=== PATIENT | male | born 1965 | race Caucasian/White ===

== ENCOUNTER 2023-02-01 11:30 | Emergency (ER) | payer BC, SELFPAY ==
[2023-02-01 11:38] VITALS: BP 137/87; PULSE 57; RESP 18; TEMP 35.8; O2SAT 96; BMI 39.7
--- NOTE | 2023-02-01 12:09 | CRLHL7_ITS ---
For Patients: As a result of the 21st Century Cures Act, medical imaging exams and procedure reports are released immediately into your electronic medical record. You may view this report before your referring provider. If you have questions, please contact your health care provider. INDICATION: Right flank pain. History of stones. COMPARISON: November 20, 2014 TECHNIQUE: CT examination of the abdomen and pelvis was performed without intravenous contrast. Thin section axial images were obtained from the lung bases through the pubic symphysis. Oral contrast was not administered. Please note that all CT scans at this facility use dose modulation, iterative reconstruction, and/or weight-based dosing when appropriate to reduce radiation dose to as low as reasonably achievable. FINDINGS: LUNG BASES: The lung bases as visualized appear normal.The heart size is normal at the lung bases. LIVER/BILIARY SYSTEM:The liver is normal in size and configuration given the lack of intravenous contrast. There is no visible focal mass and there is no intra- or extra hepatic biliary ductal dilatation.The gall bladder appears normal. Hepatic steatosis ADRENALS: Normal non-contrast appearance KIDNEYS, URETERS and BLADDER:No intrarenal calculi on the right. There is a 2.5 millimeter left lower pole renal calculus. No evidence of obstructive uropathy on either side. Multiple pelvic calcifications are noted however they are all unchanged consistent with phleboliths and other vascular calcifications. No calcifications within the bladder. There is a 2.1 centimeter left anterior mid pole renal lesion which was not present previously and measures 32 Hounsfield units. This could represent a hyperdense cyst or other lesion. Follow-up evaluation is recommended. This might be amenable by evaluation by sonography. SPLEEN:Normal non-contrast appearance. PANCREAS: Normal non-contrast appearance. RETROPERITONEUM and MESENTERY: There is no mass, adenopathy or aortic aneurysm. Atherosclerotic vascular calcifications GASTROINTESTINAL SYSTEM: There is no evidence of diverticulitis, colitis, mechanical obstruction, or appendicitis. The small bowel as visualized appears normal.Diverticulosis, especially sigmoid. PELVIS: No mass, adenopathy or free fluid. OSSEOUS STRUCTURES and ABDOMINAL WALL: There is an age-appropriate appearance of the osseous structures.No significant abdominal wall defect. OTHER: No free fluid or free air. IMPRESSION: 1. There is no specific visible cause for right flank pain. No intrarenal calculi on the right. Intrarenal calculus on the left. No evidence of current or recent obstructive uropathy on either side. 2. Indeterminate left renal lesion measuring 2.1 centimeters new since 2015. Follow-up evaluation recommended in the nonacute care setting. 3. Other incidental nonacute appearing findings as discussed above Please note that all CT scans at this facility use dose modulation, iterative reconstruction, and/or weight-based dosing when appropriate to reduce radiation dose to as low as reasonably achievable. Dictated by Robert Madrigal MD @ 02/01/2023 1:39:44 PM (Electronically Signed)
[2023-02-01 12:18] LABS: Appearance Urine Clear (Clear); Bilirubin Urine Negative (Negative); Blood Urine 2+ (Negative); Color Urine Yellow (Yellow); Glucose Urine Negative (Negative); Ketones Urine Negative (Negative); Leukocyte Esterase Urine Negative (Negative); Nitrite Urine Negative (Negative); Protein Urine Negative (Negative); Specific Gravity Urine 1.015 (1.000-1.030); Urobilinogen Urine 0.2 (0.2-1.0); pH Urine 5.5 (5.0-8.5)
[2023-02-01 12:26] LABS: Squamous Epithelial Cell Urine Few (None-Few); WBC Urine 0-2 (0-5)
[2023-02-01 12:43] LABS: Basophils Absolute Auto 0.05 K/uL (0.00-0.30); Basophils Percent Auto 0.8 % (0.0-3.0); Eosinophils Absolute Auto 0.27 K/uL (0.00-0.50); Eosinophils Percent Auto 4.5 % (0.0-7.0); Hematocrit 46.6 % (37.0-53.0); Hemoglobin* 16.1 gm/dL (13.5-17.5); Immature Granulocytes Abs Auto 0.02 K/uL (0.00-0.30); Immature Granulocytes Pct Auto 0.3 %; Lymphocytes Absolute Auto 2.19 K/uL (0.90-2.90); Lymphocytes Percent Auto 36.2 % (20-44); Mean Corpuscular HGB Conc 35 gm/dL (32-36); Mean Corpuscular Hemoglobin 31 pg (26-34); Mean Corpuscular Volume 89 fL (80-100); Monocytes Percent Auto 11.1 % (0.0-11.0); Neutrophils Absolute Auto 2.85 K/uL (1.7-7.0); Neutrophils Percent Auto 47.1 % (42.0-72.0); Platelet Count* 217 K/uL (140-440); RDW Coefficient of Variation % 12.8 % (11.5-15.5); Red Blood Count 5.24 m/uL (4.30-5.90); White Blood Count* 6.05 K/uL (4.50-11.00)
[2023-02-01 12:45] LABS: Slide Review Reflex No
--- NOTE | 2023-02-01 12:45 | ED_ITS ---
HPI - General Adult General Date Seen: 02/01/23 Chief complaint: Flank Pain Stated complaint: Possible kidney stone--back pain Time Seen by Provider: 02/01/23 12:01 Source: patient Mode of arrival: ambulatory Limitations: no limitations History of Present Illness HPI narrative: Patient is a 57-year-old male with right low back pain. He has a history of kidney stones and states this feels like his previous kidney stones but milder. States symptoms ongoing for 5 days. Says the pain feels like it is deeper he has not think it is a muscle strain. Does admit to doing regular heavy lifting. Does state some movements make the pain worse. Has not had any issues with urination. Denies dysuria. Pain has not moved at all. To the histological oblique a little opaque over his the conclusion is, lightheadedness, dizziness. No other concerns at this time Related Data Previous Rx's Medication Instructions Recorded atenolol 50 mg tablet 50 mg PO DAILY #90 tabs 05/05/22 doxycycline hyclate 100 mg capsule 100 mg PO BID #20 caps 05/05/22 prednisone 20 mg tablet 20 mg PO BID #14 tabs 05/05/22 sildenafil 100 mg tablet 25 - 100 mg (0.25 - 1 x 100 mg) PO 05/05/22 QDAY PRN sexual activity #30 tabs trazodone 50 mg tablet 25 - 50 mg (0.5 - 1 x 50 mg) PO 05/05/22 QHS #90 tabs Allergies Allergy/AdvReac Type Severity Reaction Status Date / Time Fish Containing Products Allergy Severe Anaphylaxis Verified 02/01/23 11:38 lisinopril Allergy Severe Rash Verified 02/01/23 11:37 Sulfa (Sulfonamide Allergy Severe Anaphylaxis Verified 02/01/23 11:38 Antibiotics) penicillin V Allergy Mild Rash Verified 02/01/23 11:37 levofloxacin Allergy Unknown Rash Verified 02/01/23 11:37 Review of Systems Status of ROS: Reports: 10 or more systems reviewed and unremarkable except as noted in History and below [facility] Medical History (Updated 02/01/23 @ 13:47 by Robinson Sultana DO) Insomnia ?G47.00 - Insomnia, unspecified (ICD-10) Erectile dysfunction ?N52.9 - Male erectile dysfunction, unspecified (ICD-10) Encounter for screening for COVID-19 ?Z11.52 - Encounter for screening for COVID-19 (ICD-10) Encounter for pre-operative examination ?Z01.818 - Encounter for other preprocedural examination (ICD-10) Encounter for annual physical exam ?Z00.00 - Encounter for general adult medical examination without abnormal findings (ICD-10) Surgical History (Updated 05/04/22 @ 13:45 by Isidra Mackey ~ PSR) History of shoulder surgery ?Z98.890 - Other specified postprocedural states (ICD-10) History of colonoscopy ?Z98.890 - Other specified postprocedural states (ICD-10) History of appendectomy ?Z90.49 - Acquired absence of other specified parts of digestive tract (ICD- 10) Social History Smoking Status: Never smoker Non-prescribed substance use: denies use Exam Narrative: Exam Narrative: Const: Well-nourished, Well-developed, in mild distress Eyes: PERRL, no conjunctival injection, and symmetrical lids HENT: Atraumatic external nose and ears. Moist mucous membranes. Neck: Symmetric, trachea midline, No thyromegaly. CVS: RRR, No murmurs or gallops. Peripheral pulses 2+ and equal in all extremities RESP: Unlabored respiratory effort. Clear to auscultation bilaterally. GI: Nontender/Nondistended, No rebound or guarding. MSK:Extremities w/o deformity, Normal Active ROM. Mild tenderness to right low back paraspinal region Skin: Warm, Dry. No rashes or lesions. Neuro: Normal Muscle tone, No focal neurological deficits. Psych: Awake, Alert, & Oriented x3. Appropriate mood and affect. Const: Vital Signs, click to edit/add: Vital Signs - 24 hr 02/01/23 11:38 02/01/23 12:53 Temperature 96.4 F L Pulse Rate [Pulse Oximeter] 57 L 53 L Respiratory Rate 18 16 Blood Pressure [Ri ght Upper Arm] 137/87 148/97 H Pulse Oximetry 96 96 Oxygen Delivery Me thod Room Air Room Air Course Vital Signs Vital signs: Initial Vital Signs Temperature 96.4 F L 02/01/23 11:38 Temperature Source Temporal Artery Scan 02/01/23 11:38 Pulse Rate 57 L 02/01/23 11:38 Respiratory Rate 18 02/01/23 11:38 Blood Pressure 137/87 02/01/23 11:38 Blood Pressure Mean 103 02/01/23 11:38 Blood Pressure Position Sitting 02/01/23 11:38 Pulse Oximetry 96 02/01/23 11:38 Oxygen Delivery Method Room Air 02/01/23 11:38 Vital Signs Temperature 96.4 F L 02/01/23 11:38 Pulse Rate 57 L 02/01/23 11:38 Respiratory Rate 18 02/01/23 11:38 Blood Pressure 137/87 02/01/23 11:38 Pulse Oximetry 96 02/01/23 11:38 Oxygen Delivery Method Room Air 02/01/23 11:38 Temperature 96.4 F L 02/01/23 11:38 Pulse Rate 53 L 02/01/23 12:53 Respiratory Rate 16 02/01/23 12:53 Blood Pressure 148/97 H 02/01/23 12:53 Pulse Oximetry 96 02/01/23 12:53 Oxygen Delivery Method Room Air 02/01/23 12:53 Medical Decision Making MDM Narrative Medical decision making narrative: Patient is a 57-year-old male presents emergency department for right flank pain. Denies right lower flank. He is concerned could be a kidney stone as he has had several kidney stones in the past. States the pain here is not as severe though. Does admit to doing lots of heavy lifting and when I talked involve being possibly a muscle strain he states this feels deeper than that. Since there is concern for kidney stone would check a urinalysis, CBC, BMP, CT scan with out contrast. He has not required any pain medication right now and is not needing any nausea medicine. Cbc and BMP showed no concerning abnormalities. Creatinine and appears to be at baseline. Urinalysis does show blood in his urine and he states he always has blood in his urine. CT scan returned showing no acute abnormalities. There is a new incidental kidney lesions seen which may follow up outpatient. But no kidney stones seen right now concern as blood in his u rine he could have recently passed a kidney stone. Likely those could also just be a muscle strain from his heavy lifting. He can be discharged home he agrees with this plan. Lab Data Labs: Lab Results 02/01/23 02/01/23 Range/Units 12:05 12:35 WBC 6.05 (4.50-11.00) K/uL RBC 5.24 (4.30-5.90) m/uL Hgb 16.1 (13.5-17.5) gm/dL Hct 46.6 (37.0-53.0) % MCV 89 (80-100) fL MCH 31 (26-34) pg MCHC 35 (32-36) gm/dL RDW Coeff of Soha 12.8 (11.5-15.5) % Plt Count 217 (140-440) K/uL Neut % (Auto) 47.1 (42.0-72.0) % Lymph % (Auto) 36.2 (20-44) % Moore % (Auto) 11.1 H (0.0-11.0) % Eos % (Auto) 4.5 (0.0-7.0) % Baso % (Auto) 0.8 (0.0-3.0) % Neut # (Auto) 2.85 (1.7-7.0) K/uL Lymph # (Auto) 2.19 (0.90-2.90) K/uL Moore # (Auto) 0.70 (0.00-0.90) K/UL Eos # (Auto) 0.27 (0.00-0.50) K/uL Baso # (Auto) 0.05 (0.00-0.30) K/uL Abs Immat Gran (auto) 0.02 (0.00-0.30) K/uL Imm/Tot Granulo (auto) 0.3 % Sodium 138 (135-149) mmol/L Potassium 4.4 (3.6-5.1) mmol/L Chloride 107 (96-114) mmol/L Carbon Dioxide 23 (20-32) mmol/L Anion Gap 8 (7-15) mEq/L BUN 17 (7-30) mg/dL Creatinine 1.3 (0.5-1.5) mg/dL Estimated Creat Clear 65.16 Estimated GFR 63 ml/min Glucose 86 (60-115) mg/dL Calcium 9.6 (8.4-10.6) mg/dL Urine Color Yellow (Yellow) Urine Appearance Clear (Clear) Urine pH 5.5 (5.0-8.5) Ur Specific [place] 1.015 (1.000-1.030) Urine Protein Negative (Negative) Urine Glucose (UA) Negative (Negative) Urine Ketones Negative (Negative) Urine Blood 2+ A (Negative) Urine Nitrite Negative (Negative) Urine Bilirubin Negative (Negative) Urine Urobilinogen 0.2 (0.2-1.0) Ur Leukocyte Esterase Negative (Negative) Urine RBC 5-10 A (0-2) Urine WBC 0-2 (0-5) Ur Squamous Epith Cells Few (None-Few) Urine Bacteria None (None) Imaging Data Abdominal and pelvis CT: Radiologist's impression: INDICATION: Right flank pain. History of stones. COMPARISON: November 20, 2014 TECHNIQUE: CT examination of the abdomen and pelvis was performed without intravenous contrast. Thin section axial images were obtained from the lung bases through the pubic symphysis. Oral contrast was not administered. Please note that all CT scans at this facility use dose modulation, iterative reconstruction, and/or weight-based dosing when appropriate to reduce radiation dose to as low as reasonably achievable. FINDINGS: LUNG BASES: The lung bases as visualized appear normal.The heart size is normal at the lung bases. LIVER/BILIARY SYSTEM:The liver is normal in size and configuration given the lack of intravenous contrast. There is no visible focal mass and there is no intra- or extra hepatic biliary ductal dilatation.The gall bladder appears normal. Hepatic steatosis ADRENALS: Normal non-contrast appearance KIDNEYS, URETERS and BLADDER:No intrarenal calculi on the right. There is a 2.5 millimeter left lower pole renal calculus. No evidence of obstructive uropathy on either side. Multiple pelvic calcifications are noted however they are all unchanged consistent with phleboliths and other vascular calcifications. No calcifications within the bladder. There is a 2.1 centimeter left anterior mid pole renal lesion which was not present previously and measures 32 Hounsfield units. This could represent a hyperdense cyst or other lesion. Follow-up evaluation is recommended. This might be amenable by evaluation by sonography. SPLEEN:Normal non-contrast appearance. PANCREAS: Normal non-contrast appearance. RETROPERITONEUM and MESENTERY: There is no mass, adenopathy or aortic aneurysm. Atherosclerotic vascular calcifications GASTROINTESTINAL SYSTEM: There is no evidence of diverticulitis, colitis, mechanical obstruction, or appendicitis. The small bowel as visualized appears normal.Diverticulosis, especially sigmoid. PELVIS: No mass, adenopathy or free fluid. OSSEOUS STRUCTURES and ABDOMINAL WALL: There is an age-appropriate appearance of the osseous structures.No significant abdominal wall defect. OTHER: No free fluid or free air. IMPRESSION: 1. There is no specific visible cause for right flank pain. No intrarenal calculi on the right. Intrarenal calculus on the left. No evidence of current or recent obstructive uropathy on either side. 2. Indeterminate left renal lesion measuring 2.1 centimeters new since 2014. Follow-up evaluation recommended in the nonacute care setting. 3. Other incidental nonacute appearing findings as discussed above Please note that all CT scans at this facility use dose modulation, iterative reconstruction, and/or weight-based dosing when appropriate to reduce radiation dose to as low as reasonably achievable. Dictated by Robert Madrigal MD @ 02/01/2023 1:39:44 PM Discharge Plan Discharge Clinical Impression: Flank pain Patient Disposition: Home, Self-Care Condition: Stable Instructions: Flank Pain (ED) Additional Instructions: Follow-up with the primary care provider. Return for new or worsened symptoms. Take Tylenol and ibuprofen for pain. She possibly could have had a kidney stone that has passed but does not appear to be in a kidney stone at this current moment. A could also be musculoskeletal in nature but we cannot definitively say at this time. Does not appear to be any other intra-abdominal issues. Kidney function is within normal limits. An incidental lesion was seen in your left kidney. Follow-up with your primary care provider about this when you are able to Prescriptions: No Action sildenafil 100 mg tablet 25 - 100 mg PO QDAY PRN (Reason: sexual activity) Qty: 30 12RF Rx Instructions: administer 30 minutes to 4 hours before activity prednisone 20 mg tablet 20 mg PO BID Qty: 14 1RF Rx Instructions: Gout. atenolol 50 mg tablet 50 mg PO DAILY Qty: 90 3RF doxycycline hyclate 100 mg capsule 100 mg PO BID Qty: 20 1RF trazodone 50 mg tablet 25 - 50 mg PO QHS Qty: 90 1RF Follow Up/Referrals: Lai Mathis MD [Primary Care Provider] - Stand Alone Forms: [employer] Info Instructions
[2023-02-01 12:53] VITALS: BP 148/97; PULSE 53; RESP 16; O2SAT 96
[2023-02-01 12:56] LABS: Chloride* 107 mmol/L (96-114)
[2023-02-01 12:57] LABS: Potassium* 4.4 mmol/L (3.6-5.1); Sodium* 138 mmol/L (135-149)
[2023-02-01 12:59] LABS: Creatinine* 1.3 mg/dL (0.5-1.5); Est. Creatinine Clearance* 65.16; Estimated Glomerular Filt Rate 63 ml/min
[2023-02-01 13:00] LABS: Anion Gap 8 mEq/L (7-15); Blood Urea Nitrogen* 17 mg/dL (7-30); Calcium* 9.6 mg/dL (8.4-10.6); Carbon Dioxide* 23 mmol/L (20-32); Glucose* 86 mg/dL (60-115)
[2023-02-01 13:59] VITALS: BP 149/99; PULSE 57
== END 2023-02-01 14:00 | disposition home or self-care (01) ==
PROVIDERS: Emergency Provider Student in an Organized Health Care Education/Training Program; PCP Family Medicine
DX: R10.31 Right lower quadrant pain (principal)
CPT/HCPCS: 36415; 74176; 80048; 81001; 85025; 99283; 99284

== ENCOUNTER 2023-04-13 11:24 | Outpatient (CLI) | payer BC, SELFPAY ==
--- NOTE | 2023-04-13 17:00 | CRLHL7_ITS ---
For Patients: As a result of the Century Cures Act, medical imaging exams and procedure reports are released immediately into your electronic medical record. You may view this report before your referring provider. If you have questions, please contact your health care provider. CLINICAL HISTORY: new left renal lesion seen on CT COMPARISON: CT 02/01/2023 TECHNIQUE: Jackson scale and color Doppler images were acquired of the kidneys. FINDINGS: Exophytic simple cyst arises from the left kidney inferior pole corresponding to the CT measuring 1.9 x 1.9 x 1.8 cm. There is no evidence of hydronephrosis, solid mass or calculus. The right kidney measures 12.4cm in length and the left kidney measures 11.3cm in length. The renal cortex appears of normal thickness. Normal color Doppler images of both kidneys. IMPRESSION: Simple exophytic anechoic cyst lower pole left kidney. Dictated by Rajinder Cassidy MD @ 04/13/2023 12:38:27 PM (Electronically Signed)
== END 2023-04-13 11:25 | disposition home or self-care (01) ==
LOC: US 11:24
PROVIDERS: PCP Family Medicine; Visit Provider Family Medicine
DX: N28.89 Other specified disorders of kidney and ureter (principal); N28.1 Cyst of kidney, acquired
CPT/HCPCS: 76775

== ENCOUNTER 2023-05-25 10:57 | Outpatient (CLI) | payer BC, SELFPAY | END 2023-05-25 10:58 | disposition home or self-care (01) | LOC: LKVREF 11:07 | PROVIDERS: PCP Family Medicine; Visit Provider Family Medicine | DX: I10 Essential (primary) hypertension (principal); N28.89 Other specified disorders of kidney and ureter; R31.9 Hematuria, unspecified | CPT/HCPCS: 87086; G0103 ==

== ENCOUNTER 2023-07-06 07:45 | Outpatient (CLI) | payer BC, SELFPAY ==
--- NOTE | 2023-07-06 08:00 | CT_ITS ---
Patient: ROBERT FERRARI Facility:?[facility] Patient ID:?[id number] Site Patient ID:?[id number]. Site :?[id number] Study:?CT-Abdomen/Pelvis 120CC ISOVUE 370-07/06/2023 9:49:18 AM Ordering Physician:?DR. BONILLA Final Report: INDICATION: MICROSCOPIC HEMATURIA. RT FLANK PAIN TECHNIQUE: CT abdomen and pelvis urogram without and with 120CC ISOVUE 370 contrast. Contrast images were obtained in the nephrographic and delayed phases. COMPARISON: 02.01.23 CT, 04/13/2023 ultrasound FINDINGS: KIDNEYS: The unenhanced images demonstrate no kidney or ureteral stones. The kidneys are normal in caliber and demonstrate normal uptake and excretion of IV contrast. Stable nonenhancing exophytic cyst arising from the lateral aspect of the left kidney measuring 2.0 cm. The renal collecting systems and ureters are symmetrical, normal in caliber, and without evidence of mass or filling defect. URINARY BLADDER: The urinary bladder is normal in caliber and without evidence of mass, wall thickening, or inflammation. OTHER: Mild dependent areas of atelectasis. No pleural effusion. Fatty infiltration of the liver. Normal adrenal glands. Spleen is not enlarged. There is no hiatal hernia. Pancreas is normal. Mild atherosclerotic changes. Incidental retroaortic course of the left renal vein. Colonic diverticulosis. No diverticulitis. No bowel obstruction. No free air or free fluid. No abscess. Degenerative changes. No vertebral body compression fracture. IMPRESSION: 1. Stable benign exophytic cyst arising from the left kidney. 2. No renal or ureteral stones. Please note that all CT scans at this facility use dose modulation, iterative reconstruction, and/or weight-based dosing when appropriate to reduce radiation dose to as low as reasonably achievable. Dictated by Rajinder Cassidy MD @ 07/06/2023 11:13:42 AM Signed by:?Rajinder Cassidy MD @07/06/2023 11:13:42 AM (Electronic Signature)
[2023-07-06 08:21] LABS: Creatinine* 1.2 mg/dL (0.5-1.5); Estimated Glomerular Filt Rate 69 ml/min
== END 2023-07-06 07:46 | disposition home or self-care (01) ==
PROVIDERS: PCP Family Medicine; Visit Provider Physician Assistant
DX: R31.29 Other microscopic hematuria (principal); N28.1 Cyst of kidney, acquired; R10.9 Unspecified abdominal pain
CPT/HCPCS: 36415; 74178; 82565; Q9967

== ENCOUNTER 2023-08-04 08:30 | Outpatient (CLI) | payer BC, SELFPAY ==
--- OUTSIDE RECORDS SUMMARY | 2023-08-11 12:07 | XMS_ITS | Continuity of Care Document ---
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 [facility], [address] [place] [address], [id number] , [place]. tel:[phone] Referring Provider: Patel Burrell, [address], [address] . tel:[phone] Family History Family Member Type Diagnosis Age At Onset Problem (finding) Problem (finding) Payers Payer name Insurance type Covered republican ID [place] [id number] Out Of [place] [id number] Social History Type Description Quantity Date Captured Comments Alcohol Use Details Caffeine Use Details Tobacco Use Status Smoking Status No Information Non-Smoking Tobacco Use Details : No Details Available : No Details Available Sex Male Vital Signs Date / Time: Height Weight BMI Pulse Rate Blood Pressure Temperature Respiratory Rate Body Surface Area Head Circumference Head Circ. Percentile Wt./Rafael. Percentile BMI percentile Pulse Ox Inhaled Ox 10:20 AM 70.00 in 117.934 kg (260.00 lbs) 37.3 1 kg/m eter (2) 69 /min 119/74 mm[Hg] Chief Complaint And Reason For Visit No Information Reason For Referral Reason For Referral No Information History Of Present Illness Encounter Date Complaint History Of Prese nt Illness No Information Functional Status Date Functional Assessmen t No Information Instructions Date Instruction Additional Infor jose Weight Management Education Rela elmo to Overweight Weight management: I nstructed to return to General Practitioner timeframe: 1 Month. Related to Overweight Assessments Type Assessment Date assessment Overweight Patient Care Teams Name Effective Dates (start - stop) Status Members No Information
== END 2023-08-04 08:31 | disposition home or self-care (01) ==
LOC: LKVREF 08:31
PROVIDERS: PCP Family Medicine; Visit Provider Family Medicine
DX: I10 Essential (primary) hypertension (principal); E29.1 Testicular hypofunction; N18.9 Chronic kidney disease, unspecified; E55.9 Vitamin D deficiency, unspecified
CPT/HCPCS: 84270; 84402; 84403

== ENCOUNTER 2024-01-30 08:13 | Outpatient (CLI) | payer BC, SELFPAY ==
--- OUTSIDE RECORDS SUMMARY | 2024-02-03 06:44 | XMS_ITS | Clinical Summary ---
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 0 07/25/2013 Active HYDROcodone-acetamino phen, 5-325 mg, (NORCO) per tabletIndications:Low back pain Take 1 tablet by mouth every 6 hours if needed for Pain. Use least amount possible. Max acetaminophen: 4000mg/24 hrs. 45 tablet 0 07/25/2013 Active cyclobenzaprine (FLEXERIL) 10 mg tabletIndications:Low back pain Use up to three times daily for muscle spasm/back pain. Use mostly at night only, may make you drowsy. 45 tablet 0 05/12/2014 Active atenolol (TENORMIN) 25 mg tablet Take 25 mg by mouth once daily. Active Active Problems Problem Noted Date Diagnosed Date Hypertension Overview (07/25/2013): lisinopril since 2010 Social History Tobacco Use Types Packs/Day Years Used Date Smoking Tobacco: Former Smokeless Tobacco: Never Alcohol Use Standard Drinks/Week Comments Not Asked 0 (1 standard drink = 0.6 oz pur e alcohol) Sex and Gender Information Value Date Recorded Sex Assigned at Not on file Gender Identity Not on file Sexual Orientation Not on file Obstetrics History Last Filed Vital Signs Vital Sign Reading Time Taken Comments Blood Pressure 103/64 02/20/2015 2:23 PM CDT Pulse 64 02/20/2015 2:23 PM CDT Temperature - - Respiratory Rate - - Oxygen Saturation - - Inhaled Oxygen Concentration - - Weight 123.4 kg (272 lb) 02/20/2015 2:23 PM CDT Height 180.3 cm (5' 11) 02/20/2015 2:23 PM CDT Body Mass Index 37.94 02/20/2015 2:23 PM CDT Plan of Treatment Health Maintenance Due Date Last Done Comments Tdap 1974 Depression screening for age 12+ 1975 HIV for age 15-65 1978 BMI (ht and wt on same day) for age 18+ 1981 Hepatitis C screening for ag e 18-79 1981 Tetanus booster 1983 Colonoscopy through age 75 2008 Lipids for age 45-75 2008 Zoster (shingles) series for age 50+ (1 of 2) 2013 COVID-19 vaccine series (2023- season) 2024 Influenza for age 50-64 01/07/2024 Pneumococcal series for age 6-64 Aged Out No longer eligible based on patient's age to complete this topic Care Teams Railroad Car Cleaner Relationship Specialty Start Date End Date Patel Diaz MD PCP - General Family Practice 02/17/15
--- OUTSIDE RECORDS SUMMARY | 2024-02-03 06:44 | XMS_ITS | Continuity of Care Document ---
Author Organization [facility] Address [address] [place] [address] Phone Care Team Providers Care Healthcare Project Manager Name Role Phone Veronica PAZ, Keenan Unavailable Unavailable Procedures Procedure Date Office/Outpatient Visit,[facility] 2015 Advance Directives Directive Yes / No Effective Date File Name No Information Encounters Encounter Description Practice Location Reason(s) For Visit Diagnoses Date Provider Providers Copied on Encounter Office/Outpat ient Visit,[facility], [facility], [address], [place], [place], [id number], [place] tel:[phone] [facility] OverweightOther spondylosis, lumbar region 6 Veronica Hussein. [facility], [address] , [place], [address], [place]. tel:[phone] Referring Provider: Patel Burrell, [place] [address] [place] [address], [address] . tel:[phone] Family History Family Member Type Diagnosis Age At Onset Problem (finding) Problem (finding) Payers Payer name Insurance type Covered libertarian ID Saydaa aleyda(s) BCBS [id number] Out Of [place] [id number] Social History Type Description Quantity Date Captured [...] No Information Instructions Date Instruction Additional Infor mation Weight Management Education Rela elmo to Overweight Weight management: I nstructed to return to General Practitioner timeframe: 1 Month. Related to Overweight Assessments Type Assessment Date assessment Overweight Patient Care Teams Name Effective Dates (start - stop) Status Members No Information
--- OUTSIDE RECORDS SUMMARY | 2024-02-03 06:44 | XMS_ITS | Data Portability ---
Author Organization [facility] Address [address] [place] [address] Care Team Providers Care Consulting Software Engineer Name Role Phone ALAN MATHIS Primary Care Provider [phone] Assessment No assessment recorded. Plan of Treatment Reminders Order Date Submit Date Provider Last Modified By Organization Details Last Modified Time Details Appointments None recorded. Lab urinalysis, dipstick 2023 024 [facility], [address], [address], [place], [address], 4 12:36:26 urinalysis, microscopic 2023 024 [facility], [address], [address], [place], [address], 4 05:01:35 Referral None recorded. Procedures None recorded. Surgeries None recorded. Imaging None recorded. Medication Orders None recorded. Patient TargetsNo targets recorded. Patient Instructions Encounter Date Encounter Id Patient Instructions Last Modified By Organization Details Last Modified Time 06/22/2023 [id number] 57 year old male referred by Dr. Alan Mathis at [facility]. 1. Right back pain over superior aspect of hip: Pt reports 4 month history of right lower back pain. Stable, 2/10 severity that only occurs in the morning after he wakes up. This improves with movement. Denies voiding concerns. Pt was given exercises and stretches for this pain but has not yet tried them. Had CT scan on 02/01/23 showing no kidney stones on the right. Small 2.5 mm left renal stone as well as a small renal lesion and MARYURI was recommended. MARYURI completed 04/13/23 and showed left renal lesion was a simple cyst. Plan to follow small stone expectantly. Discussed his pain. I do not believe his right sided back pain stems from a urologic source given character and location. Continue to work with PCP to pursue other etiologies. 2. Reported history of microscopic hematuria: Recent UA with RBC 2-5 Pt reports history of microscopic hematuria with a negative workup including cyst[place] [address] Griffin in [place], [place]. Denies gross hematuria. Will obatin these records for review. UA pending today. 3. Prostate cancer screening: Reports prostate cancer screening with PSA was recently done with PCP and normal. Continue routine prostate cancer screening with PCP. He is advised to call with worsening voiding symptoms. His questions were answered and he wished to proceed. [email or web address] Not available 06/22/2023 13:28:47 Reason for Referral None Reported. Results Created Date Observation Date Name Description Value Unit Range Abnormal Flag Note LastModifiedBy Organization Detail LastModifiedTime 06/22/19 24 06/22/2023 UA WITHO UT MICRO - CS URISC AN blood - uriscan NEGATI VE negati ve Not Available [facility] [address], [place], [address], 06/22/2023 12:36:26 06/22/19 24 06/22/2023 UA WITHO UT MICRO - CS URISC AN bilirubin - uriscan NEGATI VE mg/dL negati ve Not Available [facility] [address], [place], [address], 06/22/2023 12:36:26 06/22/19 24 06/22/2023 UA WITHO UT MICRO - CS URISC AN urobilinogen - uriscan NORMAL mg/dL normal Not Available [facility] [address] [facility] [address] [address], [place], [address], 06/22/2023 12:36:26 06/22/19 24 06/22/2023 UA WITHO UT MICRO - CS URISC AN ketones - uriscan NEGATI VE mg/dL negati ve Not Available [facility] [address], [place], [address], 06/22/2023 12:36:26 06/22/19 24 06/22/2023 UA WITHO UT MICRO - CS URISC AN protein - uriscan NEGATI VE mg/dL negati ve Not Available [facility] [address] [place] [address] [address], [place], [address], 06/22/2023 12:36:26 06/22/19 24 06/22/2023 UA WITHO UT MICRO - CS URISC AN nitrites - uriscan NEGATI VE negati ve Not Available [facility] [address], [place], [address], 06/22/2023 12:36:26 06/22/19 24 06/22/2023 UA WITHO UT MICRO - CS URISC AN glucose - uriscan NEGATI VE mg/dL negati ve Not Available [facility] [address] [place] [address] [address], [place], [address], 06/22/2023 12:36:26 06/22/19 24 06/22/2023 UA WITHO UT MICRO - CS URISC AN pH - uriscan 7.00 5.00-9 .00 Not Available [facility] [address] [place] [address] [address], [place], [address], 06/22/2023 12:36:26 06/22/19 24 06/22/2023 UA WITHO UT MICRO - CS URISC AN sp. gravity - uriscan 1.02 1.01-1 .03 Not Available [facility] [address] [place] [address] [address], [place], [address], 06/22/2023 12:36:26 06/22/19 24 06/22/2023 UA WITHO UT MICRO - CS URISC AN leukocytes - uriscan NEGATI VE negati ve Not Available [facility] [address] [place] [address] [address], [place], [address], 06/22/2023 12:36:26 06/22/19 24 06/22/2023 UA WITHO UT MICRO - CS URISC AN color - uriscan YELLOW lt. yellow ;yello w Not Available [facility] [address] [facility] [address], [place], [address], 06/22/2023 12:36:26 06/22/19 24 06/22/2023 UA WITHO UT MICRO - CS URISC AN clarity - uriscan CLEAR clear Not Available [facility] [address] [facility] [address], [place], [address], 06/22/2023 12:36:26 06/22/19 24 06/22/2023 UA WITHO UT MICRO - CS URISC AN total urine volume (mL) 50CC /mL ----- ----- ----- ----- ----- ----- ----- ----- ----- ----- ----- ----- ----- ----- ---- *Jen cochran note the follo wing minim um quant ities for addit ional urine testi ng: - Atypi cals: 3 mL - Cytol ogy: 20 mL - GC/CH : 2 mL - FISH: 30 mL - Atypi cals w/ GC/CH : 5 mL - Cytol ogy PLUS FISH: 50 mL - Urine Cultu re: 3 mL ----- ----- ----- ----- ----- ----- ----- ----- ----- ----- ----- ----- ----- ----- ---- This lab resul t is being provi ded to you and your provi vikash at the same time in compl iance with the 21st Centu ry Cures Act. Your provi vikash may not have had time to revie w and make recom menda tions based on the resul t. Pleas e allow up to one week for provi vikash revie w. Not Available [facility] [address], [place], [address], 06/22/2023 12:36:26 07/01/19 24 04/13/2023 US, renal No observ ation record ed. [email or web address] Not Available 07/01 16:34:02 07/01/19 24 02/01/2023 CT, abdom en + pelvi s, w/o contr ast No observ ation record ed. [email or web address] Not Available 2023 10:20:31 Result Notes None recorded. Problems Name Problem SNOMED Code Status Onset Date Resolution Date Notes Provider Name and Address Organization Details Recorded Time Piotr hematuria 899163676 Active 2023 Clarisse madrigal [facility] 4 13:13:52 Disorder of kidney and/or ureter 633210390 Active 2023 Clarisse madrigal [facility] 4 13:14:11 Insomnia 606301993 [facility] 13:17[facility]05 Erectile dysfunction 903750954 [facility] 13:17:15 Problem Notes None recorded. Procedures Surgical History None recorded. Imaging Results Imaging Date Name Status LastModified by Organiz [facility] Details LastModified Time 04/13/2023 US, renal completed [email or web address] Information no t available 07/01/2023 16:34:02 02/01/2023 CT, abdomen + pelvis, w/o contrast completed [email or web address] Information not available 2023 10:20:31 Procedure Notes None recorded. Medical Equipment None Reported. Allergies Allergen ID Allergen Name Allergen Category Reaction Reaction Severity Criticality Documentation Date Start Date Code Code System Note Provider Name and Address Organization Details Recorded Time 646204 Fish (substanc e) food,medi cation anaphylax is severe Not available 06/21/2023 07941 1005 SNOMED Clarisse madrigal [facility] 4 13:15:25 278006 lisinopri l medicatio n rash Not available Not available 06/21/2023 34566 RxNorm Clarisse Bland [facility], [facility] 4 13:15:53 420406 Substance with sulfonami de structure and antibacte rial mechanism of action (substanc e) medicatio n anaphylax is severe Not available 06/21/2023 80621 8003 SNOMED Clarisse Bland [facility] 4 13:16:06 404934 penicilli n V Not available rash mild Not available 06/21/2023 7984 RxNorm Clarisse Bland [facility], [facility] 4 13:16:32 111733 levofloxa danilo medicatio n rash Not available Not available 06/21/2023 67626 RxNorm Clarisse Bland [facility], [facility] 4 13:16:48 Medications Name Sig Start Date Stop Date Status Note LastModified by Organization Details LastModified Time doxycycline hyclate 100 mg capsule TAKE 1 CAPSULE BY MOUTH TWICE DAILY active Not Available Not Available No t Available trazodone 50 mg tablet TAKE ONE-HALF TO 1 TABLET BY MOUTH EVERY NIGHT AT BEDTIME active Not Available Not Available No t Available prednisone 20 mg tablet TAKE 1 TABLET BY MOUTH TWICE DAILY active Not Available Not Available No t Available sildenafil 100 mg tablet Take 1 tablet every day by oral route as needed. active Not Available Not Available No t Available clotrimazole- betamethasone 1 %-0.05 % topical cream APPLY TOPICALLY TO THE AFFECTED AREA TWICE DAILY FOR 2 WEEKS active Not Available Not Available No t Available triamterene 37.5 mg-hydrochlor othiazide 25 mg tablet TAKE 1 TABLET BY MOUTH EVERY DAY active Not Available Not Available No t Available atenolol 50 mg tablet Take 1 tablet every day by oral route. active Not Available Not Available No t Available Vitals Date Recorded Body height Body mass index (BMI) Body weight Provider Name and Address Organization Details Last Updated DateTime 06/22/2023 180.34 cm 35.3 kg/m2 468972.87 g Clarisse Bland [facility] 06/22/2023 11:56:38 Social History Question Answer Notes LastModified by Organizat ion Details LastModified Time Tobacco Smoking Status Never Smoker Clarisse madrigal [facility] 06/22/2023 11:59:05 What Is Your Level Of Alcohol Consumption? Heavy Information not available 06/22/2023 What Was The Date Of Your Most Recent Tobacco Screening? 06/22/2023 Information not available 06/22/2023 Have You Ever Been Counseled For Unhealthy Alcohol Use? Yes Information not available 06/22/2023 What Is Your Relationship Status? Information not available 06/22/2023 Do You Use Any Illicit Or Recreational Drugs? No Information not available 06/22/2023 Do You Or Have You Ever Used Any Other Forms Of Tobacco Or Nicotine? No Information not available 06/22/2023 How Many Days In The Past Year Have You Consumed 5 Or More Drinks? 365 Information no t available 06/22/2023 Sex: Unknown Functional Status None recorded. Mental Status None recorded. Family History Nothing Reported. Medical History Condition Response Diabetes N Bleeding Disorder N High Blood Pressure Y Kidney Stones Y High Cholesterol N GERD/Acid Reflux N Heart Disease N Cancer N Lung Disease N Depression N Immunizations Vaccine Type Date Status Provider Name and Address Organization Details Recorded Time COVID-19, mRNA, LNP-S, PF, 30 mcg/0.3 mL dose 08/28/2020 completed Clarisse madrigal [facility] 06/22/2023 11:56:45 COVID-19, mRNA, LNP-S, PF, 30 mcg/0.3 mL dose 09/25/2020 completed Clarisse madrigal [facility] 06/22/2023 11:56:45 Tdap 07/27/2016 completed Clarisse madrigal [facility] 06/22/2023 11:56:45 Influenza, split virus, quadrivalent, PF 03/22/2021 completed Clarisse madrigal [facility] 06/22/2023 11:56:45 Past Encounters Encounter ID Performer Location Encounter Start Date Encounter Closed Date Diagnosis/Indication Diagnosis SNOMED-CT Code Diagnosis ICD10 Code [id number] [facility] [address] [place], [place] [phone] 0 06/22/2023 11:37:26 06/22/2023 13:58:16 Kidney stone 38849271 N20.0 Low back pain 860560798 M54.50 Health Concerns Section Related Observation LastModified by Organization Detai ls LastModified Time None Recorded Concern Status LastModified by Organization Details LastModified Time None Recorded Advance Directives Directive None Recorded Payers Encounter Date Sequence Insurance Name Policy Number Policy Garcia Covered Member ID Garcia Member ID Guarantor Name 06/22/2023 1 [place] [id number] Vance Guzman [id number] Vance Cunharader Notes Date Note Type Note Provider Name and Address Organization Details Recorded Time 06/22/2023 text/html HPI Notes: 57 ye ar old male referred by Dr. Alan Mathis at [facility]. Pt reports 4 month history of right lower back pain. Stable, 2/10 severity that only occurs in the morning after he wakes up. This improves with movement. No radiation of pain. Denies fever, chills, nausea, vomiting. nocturia 4x. No dysuria, hematuria. Denies voiding concerns. Pt was given exercises and stretches for this pain but has not yet tried them. States he is recently retired and wants to make sure no sinister process is happening. States he had a friend that had abdominal pain and was found to have liver cancer and shortly after this. Pt wants to make sure nothing is going on with regard to cancer. Pt with personal history of kidney stones with spontaneous passage in the past. No known FH kidney stones. Had CT scan on 02/01/23 showing no kidney stones on the right. Small 2.5 mm left renal stone as well as a small renal lesion and MARYURI was recommended. MARYURI completed 04/13/23 and showed left renal lesion was a simple cyst. Cr 1.4. UA with RBC 2-5 Pt reports history of microscopic hematuria with a negative workup [place] [address] Griffin in [place], [place]. Denies gross hematuria. Reports prostate cancer screening with PSA was recently done with PCP and normal. CATRACHITA BONILLA PA-C [id number], [place], [address], [facility] 06/22/2023 13:29:16
== END 2024-01-30 08:14 | disposition home or self-care (01) ==
LOC: NFLDREF 02-03 06:42
PROVIDERS: PCP Family Medicine; Referring Provider Family Medicine; Visit Provider Family Medicine
DX: E29.1 Testicular hypofunction (principal); I10 Essential (primary) hypertension; R53.83 Other fatigue
CPT/HCPCS: 80048; 80076; 84270; 84402; 84403

== ENCOUNTER 2024-11-07 08:58 | Outpatient (CLI) | payer BC, SELFPAY | END 2024-11-07 08:59 | disposition home or self-care (01) | PROVIDERS: PCP Family Medicine; Visit Provider Family Medicine | DX: I12.9 Hypertensive chronic kidney disease with stage 1 through stage 4 chronic kidney disease, or unspecified chronic kidney disease (principal); E55.9 Vitamin D deficiency, unspecified; E29.1 Testicular hypofunction; E66.9 Obesity, unspecified; M10.9 Gout, unspecified; N18.9 Chronic kidney disease, unspecified; Z12.5 Encounter for screening for malignant neoplasm of prostate | CPT/HCPCS: 80053; 80061; 82306; 84270; 84402; 84403; 84550; 86803; G0103 ==

== ENCOUNTER 2025-03-17 08:00 | Outpatient (CLI) | payer BC, SELFPAY | END 2025-03-17 08:01 | disposition home or self-care (01) | LOC: LKVREF 17:15 | PROVIDERS: PCP Family Medicine; Referring Provider Family Medicine; Visit Provider Family Medicine | DX: D64.9 Anemia, unspecified (principal); E29.1 Testicular hypofunction; R53.83 Other fatigue | CPT/HCPCS: 80061; 80076; 84270; 84402; 84403 ==